=== PATIENT | male | born 1935 | race Caucasian/White ===

== ENCOUNTER 2020-05-31 09:30 | Inpatient (IN) | payer MEDICARE, SELFPAY ==
[2020-05-31] VITALS (11 sets, daily range): BP systolic 122–142; BP diastolic 66–106; PULSE 88–115; RESP 14–22; TEMP 36.4–37.2; O2SAT 94–99; BMI 28.3; BMI 25.2
--- NOTE | 2020-05-31 | ECG_ITS ---
Test Reason : SOB Blood Pressure : / mmHG Vent. Rate : 096 BPM Atrial Rate : 220 BPM P-R Int : 000 ms QRS Dur : 120 ms QT Int : 388 ms P-R-T Axes : 261 -68 075 degrees QTc Int : 490 ms Atrial flutter with variable A-V block Left axis deviation Pulmonary disease pattern Right bundle branch block Left ventricular hypertrophy with repolarization abnormality Cannot rule out Septal infarct (cited on or before 14-MAY-2019) Abnormal ECG When compared with ECG of 14-MAY-2019 01:09, Atrial flutter has replaced Sinus rhythm Right bundle branch block is now Present Referred By: Janay Diego Electronically Signed By:Dez Martin
--- NOTE | 2020-05-31 09:58 | XR_ITS ---
EXAMINATION: XR CHEST CLINICAL INFORMATION: Shortness of breath, fluid overload COMPARISON: Chest radiographs dated 05/13/2019 and chest CTA dated 05/14/2019. TECHNIQUE: Frontal view of the chest was obtained. FINDINGS: There is persistent opacification and superjacent markings in the right mid and lower lung field without significant change. The left lung is clear. The heart and mediastinal structures are unremarkable. Multilevel sternotomy wires are intact. XR/XR chest 1V IMPRESSION: Right pleural effusion and superjacent atelectasis/infiltrates without significant interval change.
--- NOTE | 2020-05-31 09:59 | ED.SOB ---
HPI - SOB/Dyspnea General Chief Complaint: Dyspnea Stated Complaint: SOB Time Seen by Provider: 05/31/20 09:41 Source: patient and EMS Mode of arrival: EMS Limitations: no limitations History of Present Illness HPI Narrative: 85 y/o male with history of CHF, s/p aortic valve replacement in 2004 with redo sternotomy wtih bioprostetic AVR and mechanical MVR in 2013 (on Coumadin), atypical HUS on [employer], hx recurrent right pleural effusion s/p Pleurex catheter placement several years ago (now removed), hx GI bleed in December 2019 who presents with worsening DOEx 1 week. He states he is now SOB when even taking a few steps. Breathing is worse when laying flat as well. No cough, chest pain, fever, chills, N/V. He reports not having his Lasix for 1 week because there was an issue with the mail-in pharmacy. When he got the prescription he took double the dose on Monday and Monday and usual dose today. MD elicited complaint: shortness of breath Pertinent past history: congestive heart failure Onset (ago): week(s) (1) Context: medication noncompliance Timing: constant Severity: moderate Exacerbating factors: lying flat and exertion Known history of: congestive heart failure Associated symptoms: orthopnea Treatment prior to arrival: oxygen Related Data Allergies Allergy/AdvReac Type Severity Reaction Status Date / Time Opioids - Morphine Analogues Allergy Unknown VOMITING Verified 05/31/20 09:57 [OPIOIDS - MORPHINE ANALOGUES] morphine [MORPHINE] AdvReac Unknown VOMITING Verified 05/31/20 09:57 Review of Systems Review of Systems: Constitutional: No Fever, No Chills ENT/Mouth: No sore throat, No Rhinorrhea, No Swallowing Difficulty Eyes: No Eye Pain, No Swelling, No Redness Cardiovascular: No Chest Pain, + SOB, + Orthopnea, + Edema Respiratory: No Cough, No Sputum, + Wheezing, + dyspnea Gastrointestinal: No Nausea, No Vomiting, No Diarrhea, No abdominal Pain Genitourinary: No Dysuria, No Urinary Frequency, No Hematuria Musculoskeletal: No joint pain, No Myalgias Skin: No Skin Lesions, No rash Neuro: No Weakness, No Numbness, + Dizziness, No Headache Psych: No Anxiety/Panic, No Depression Heme/Lymph: No Bruising, No Lymphadenopathy Endocrine: No Polyuria, No Polydipsia [facility] Past Medical History Medical History (Updated 05/31/20 @ 11:54 by ABENA Rodríguez) CHF (congestive heart failure) HTN (hypertension) Surgical History (Updated 05/31/20 @ 09:55 by Ronel Lainez) Status post double vessel coronary artery bypass Social History Social History Alcohol intake: never Smoking Status: Never smoker Use of substances other than those prescribed or required for medical reasons: No Advance Directives: No Advance Directives Information Provided: Yes Physical Exam Vital Signs: Vital Signs: Last Vital Signs Temp 97.6 F 05/31/20 09:48 Pulse 105 H 05/31/20 11:39 Resp 22 H 05/31/20 11:39 BP 122/66 05/31/20 11:39 Pulse Ox 98 05/31/20 11:39 Body Mass Index 28.3 Appearance: Alert. Oriented X3. No acute distress. Eyes: Pupils equal, round and reactive to light. ENT: Pharynx normal. Neck: Normal inspection. Neck supple. CVS: irregularly irregular, rapid rate, +murmur. Respiratory: mild respiratory distress with RR low 20's, bibasilar crackles R>L, speaks in 3-4 word sentences. Abdomen: Soft, rotund, and nontender. +BS x4 Skin: venous stasis changes to bilateral lower legs Extremities: 3+ pitting edema of bilateral ankles, 2+ edema of lower ankles. Neuro: Oriented X 3. No motor deficit. No sensory deficit. Course Course Course Narrative: 85 y/o male presenting with worsening SOB and ZEPEDA x1 week after not getting his lasix Rx in the mail. Exam consistent with fluid overload. Will get CXR and labs. Found to be in new onset atrial flutter, HR 90-100's. He is already anticoagulated. He denies chest pain. SOB when speaking, SpO2 93% on room air, placed on 2L NC for comfort, sat increased to 100%. Doubt sepsis, tachycardia and increased RR due to SOB/fluid overload. Dispo pending results and improvement. Reevaluation(s) Reevaluation #1: CXR showed Right pleural effusion and superjacent atelectasis/infiltrates without significant interval change. Hx requiring thoracentesis and Pleurex catheter in the past. Given his dyspnea will speak with hospitalist about admission. Reevaluation #2: Spoke with Dr. Jones who accepts patient. Type and screen ordered for possible FFP transfusion to perform thoracentesis. MDM - SOB/Dyspnea Lab Data Result diagrams: 05/31/20 10:16 05/31/20 10:16 Labs: Lab Results 05/31/20 05/31/20 05/31/20 Range/Units 10:16 10:16 10:16 WBC 7.1 (4.8-10.8) X10*3/uL RBC 3.29 L (4.60-5.80) X10*6/uL Hgb 10.6 L (14.0-18.0) g/dl Hct 34.1 L (42-52) % MCV 103.6 H (80-98) fL MCH 32.2 (27.0-33.0) pg MCHC 31.1 (31.0-36.0) g/dl RDW 15.6 (11.0-16.0) % Plt Count 171 (160-400) X10*3/uL MPV 10.9 (9.4-12.4) fL Immature Gran % (Auto) 0.3 (0.0-0.4) % Neut % (Auto) 75.4 H (45-73) % Lymph % (Auto) 9.9 L (20-40) % [place] % (Auto) 11.9 H (2-11) % Eos % (Auto) 2.2 (0-4) % Baso % (Auto) 0.3 (0-2) % Lymph # (Auto) 0.7 L (1.2-4.9) X10*3/uL [place] # (Auto) 0.9 (0.1-1.2) X10*3/uL Eos # (Auto) 0.2 (0.0-0.4) X10*3/uL Baso # (Auto) 0.0 (0.0-0.2) X10*3/uL Abs Immat Gran (auto) 0.02 (0.00-0.03) X10*3/uL Absolute Neuts (auto) 5.4 (2.0-8.3) X10*3/uL Absolute Nucleated RBC 0.000 (0.0-0.012) X10*3/uL Nucleated RBC % (auto) 0.0 (0.0-0.2) /100WBC PT 31.1 H (10.8-13.0) SEC INR 2.6 H (0.9-1.1) APTT 51.4 H (24.1-38.0) SEC Sodium 144 (135-145) mmol/L Potassium 3.6 (3.3-5.1) mmol/l Chloride 107 (96-108) mmol/L Carbon Dioxide 29 (22-29) mmol/L Anion Gap 12 (12-20) BUN 32 H (9-16) mg/dL Creatinine 1.30 (0.5-1.4) mg/dL Estim Creat Clear Calc 44.1 Estimated GFR 53 Random Glucose 145 H (60-115) mg/dL Calcium 8.6 (8.4-10.2) mg/dL Magnesium (1.6-2.6) mg/dL Total Bilirubin (0.0-1.0) mg/dL Direct Bilirubin (0.0-0.5) mg/dL AST (5-37) U/L ALT (0-40) U/L Alkaline Phosphatase (39-117) U/L Troponin I High Sens (<3.5-35.0) ng/L B-Natriuretic Peptide (<100) pg/mL Total Protein (6.5-8.0) g/dL Albumin (3.5-5.0) g/dL Urine Color Urine Appearance Urine pH (5.0-8.0) Ur Specific [place] (1.005-1.025) Urine Protein (NEG-TRACE) MG/DL Urine Glucose (UA) (NEG) MG/DL Urine Ketones (NEG) MG/DL Urine Blood (NEG) Urine Nitrite (NEG) Ur Leukocyte Esterase (NEG) Urine RBC (0) /HPF Urine WBC (0-4) /HPF Ur Squamous Epith Cells /LPF Urine Bacteria /LPF COVID-19 (ANNA) (Negative) COVID-19 Clin Com 05/31/20 05/31/20 05/31/20 Range/Units 10:16 10:16 10:16 WBC (4.8-10.8) X10*3/uL RBC (4.60-5.80) X10*6/uL Hgb (14.0-18.0) g/dl Hct (42-52) % MCV (80-98) fL MCH (27.0-33.0) pg MCHC (31.0-36.0) g/dl RDW (11.0-16.0) % Plt Count (160-400) X10*3/uL MPV (9.4-12.4) fL Immature Gran % (Auto) (0.0-0.4) % Neut % (Auto) (45-73) % Lymph % (Auto) (20-40) % [place] % (Auto) (2-11) % Eos % (Auto) (0-4) % Baso % (Auto) (0-2) % Lymph # (Auto) (1.2-4.9) X10*3/uL [place] # (Auto) (0.1-1.2) X10*3/uL Eos # (Auto) (0.0-0.4) X10*3/uL Baso # (Auto) (0.0-0.2) X10*3/uL Abs Immat Gran (auto) (0.00-0.03) X10*3/uL Absolute Neuts (auto) (2.0-8.3) X10*3/uL Absolute Nucleated RBC (0.0-0.012) X10*3/uL Nucleated RBC % (auto) (0.0-0.2) /100WBC PT (10.8-13.0) SEC INR (0.9-1.1) APTT (24.1-38.0) SEC Sodium (135-145) mmol/L Potassium (3.3-5.1) mmol/l Chloride (96-108) mmol/L Carbon Dioxide (22-29) mmol/L Anion Gap (12-20) BUN (9-16) mg/dL Creatinine (0.5-1.4) mg/dL Estim Creat Clear Calc Estimated GFR Random Glucose (60-115) mg/dL Calcium (8.4-10.2) mg/dL Magnesium 2.0 (1.6-2.6) mg/dL Total Bilirubin 1.0 (0.0-1.0) mg/dL Direct Bilirubin 0.5 (0.0-0.5) mg/dL AST 47 H (5-37) U/L ALT 26 (0-40) U/L Alkaline Phosphatase 72 (39-117) U/L Troponin I High Sens 17.6 (<3.5-35.0) ng/L B-Natriuretic Peptide (<100) pg/mL Total Protein 7.3 (6.5-8.0) g/dL Albumin 3.9 (3.5-5.0) g/dL Urine Color Urine Appearance Urine pH (5.0-8.0) Ur Specific [place] (1.005-1.025) Urine Protein (NEG-TRACE) MG/DL Urine Glucose (UA) (NEG) MG/DL Urine Ketones (NEG) MG/DL Urine Blood (NEG) Urine Nitrite (NEG) Ur Leukocyte Esterase (NEG) Urine RBC (0) /HPF Urine WBC (0-4) /HPF Ur Squamous Epith Cells /LPF Urine Bacteria /LPF COVID-19 (ANNA) Negative (Negative) COVID-19 Clin Com See Note 05/31/20 05/31/20 Range/Units 10:16 10:16 WBC (4.8-10.8) X10*3/uL RBC (4.60-5.80) X10*6/uL Hgb (14.0-18.0) g/dl Hct (42-52) % MCV (80-98) fL MCH (27.0-33.0) pg MCHC (31.0-36.0) g/dl RDW (11.0-16.0) % Plt Count (160-400) X10*3/uL MPV (9.4-12.4) fL Immature Gran % (Auto) (0.0-0.4) % Neut % (Auto) (45-73) % Lymph % (Auto) (20-40) % [place] % (Auto) (2-11) % Eos % (Auto) (0-4) % Baso % (Auto) (0-2) % Lymph # (Auto) (1.2-4.9) X10*3/uL [place] # (Auto) (0.1-1.2) X10*3/uL Eos # (Auto) (0.0-0.4) X10*3/uL Baso # (Auto) (0.0-0.2) X10*3/uL Abs Immat Gran (auto) (0.00-0.03) X10*3/uL Absolute Neuts (auto) (2.0-8.3) X10*3/uL Absolute Nucleated RBC (0.0-0.012) X10*3/uL Nucleated RBC % (auto) (0.0-0.2) /100WBC PT (10.8-13.0) SEC INR (0.9-1.1) APTT (24.1-38.0) SEC Sodium (135-145) mmol/L Potassium (3.3-5.1) mmol/l Chloride (96-108) mmol/L Carbon Dioxide (22-29) mmol/L Anion Gap (12-20) BUN (9-16) mg/dL Creatinine (0.5-1.4) mg/dL Estim Creat Clear Calc Estimated GFR Random Glucose (60-115) mg/dL Calcium (8.4-10.2) mg/dL Magnesium (1.6-2.6) mg/dL Total Bilirubin (0.0-1.0) mg/dL Direct Bilirubin (0.0-0.5) mg/dL AST (5-37) U/L ALT (0-40) U/L Alkaline Phosphatase (39-117) U/L Troponin I High Sens (<3.5-35.0) ng/L B-Natriuretic Peptide 228 H (<100) pg/mL Total Protein (6.5-8.0) g/dL Albumin (3.5-5.0) g/dL Urine Color YELLOW Urine Appearance CLEAR Urine pH 5.5 (5.0-8.0) Ur Specific [place] 1.015 (1.005-1.025) Urine Protein 1+ H (NEG-TRACE) MG/DL Urine Glucose (UA) NEG (NEG) MG/DL Urine Ketones NEG (NEG) MG/DL Urine Blood 1+ H (NEG) Urine Nitrite NEG (NEG) Ur Leukocyte Esterase NEG (NEG) Urine RBC 0-2 (0) /HPF Urine WBC 0 (0-4) /HPF Ur Squamous Epith Cells TRACE /LPF Urine Bacteria NONE /LPF COVID-19 (ANNA) (Negative) COVID-19 Clin Com ECG Data Attestation: I personally reviewed and interpreted this ECG as follows: ECG interpretation date: 05/31/20 ECG interpretation time: 10:01 Interpretation: atrial flutter with RBBB, HR 96, prolonged QTc 490 ms Discharge Plan Discharge Clinical Impression: Pleural effusion on right Congestive heart failure Qualifiers: Heart failure type: unspecified Heart failure chronicity: acute on chronic Qualified Code(s): I50.9 - Heart failure, unspecified Patient Disposition: Admitted As Inpatient
[2020-05-31 10:23] LABS: MANUAL DIFF FLAG NO
[2020-05-31 10:25] LABS: Basophils Percent Auto 0.3 % (0-2); Eosinophils Absolute Auto 0.2 X10*3/uL (0.0-0.4); Eosinophils Percent Auto 2.2 % (0-4); Hematocrit 34.1 % (42-52); Hemoglobin 10.6 g/dl (14.0-18.0); Imm Gran Abs Auto 0.02 X10*3/uL (0.00-0.03); Imm Gran Pct Auto 0.3 % (0.0-0.4); Lymphocytes Absolute Auto 0.7 X10*3/uL (1.2-4.9); Lymphocytes Percent Auto 9.9 % (20-40); Mean Corpuscular HGB Conc 31.1 g/dl (31.0-36.0); Mean Corpuscular Hemoglobin 32.2 pg (27.0-33.0); Mean Corpuscular Volume 103.6 fL (80-98); Mean Platelet Volume 10.9 fL (9.4-12.4); Monocytes Absolute Auto 0.9 X10*3/uL (0.1-1.2); Monocytes Percent Auto 11.9 % (2-11); Neutrophils Absolute Auto 5.4 X10*3/uL (2.0-8.3); Neutrophils Percent Auto 75.4 % (45-73); Platelet Count 171 X10*3/uL (160-400); Red Blood Count 3.29 X10*6/uL (4.60-5.80); Red Cell Distribution Width 15.6 % (11.0-16.0); White Blood Count 7.1 X10*3/uL (4.8-10.8)
[2020-05-31 10:27] LABS: Glucose Urine UA NEG (NEG); Leukocyte Esterase Urine NEG (NEG); Nitrite Urine NEG (NEG); PH 5.5 (5.0-8.0); Specific Gravity - Urine 1.015 (1.005-1.025); Urine Blood 1+ (NEG); Urine Ketones NEG (NEG); Urine Protein 1+ MG/DL (NEG-TRACE)
[2020-05-31 10:30] LABS: Appearance Urine CLEAR; Color Urine YELLOW
[2020-05-31 10:32] LABS: INTERNATIONAL NORM RATIO 2.6 (0.9-1.1); Prothrombin Time 31.1 SEC (10.8-13.0)
[2020-05-31 10:34] LABS: Partial Thromboplastin Time 51.4 SEC (24.1-38.0)
[2020-05-31 10:45] LABS: RBC Urine 0-2 /HPF (0); Squamous Epithelial Cell Urine TRACE /LPF; WBC Urine 0 /HPF (0-4)
[2020-05-31 10:47] LABS: COVID-19 Test Negative (Negative)
[2020-05-31 10:55] LABS: Anion Gap 12 (12-20); Blood Urea Nitrogen 32 mg/dL (9-16); Calcium 8.6 mg/dL (8.4-10.2); Carbon Dioxide 29 mmol/L (22-29); Chloride 107 mmol/L (96-108); Creatinine Clr Calc Pharmacy 44.1; Estimated Glomerular Filt Rate 53; Glucose Random 145 mg/dL (60-115); Potassium 3.6 mmol/l (3.3-5.1); Sodium 144 mmol/L (135-145)
[2020-05-31 10:57] LABS: Alanine Aminotransferase 26 U/L (0-40); Albumin Level 3.9 g/dL (3.5-5.0); Alkaline Phosphatase 72 U/L (39-117); Aspartate Amino Transferase 47 U/L (5-37); Bilirubin Direct 0.5 mg/dL (0.0-0.5); Total Protein 7.3 g/dL (6.5-8.0)
[2020-05-31 10:59] LABS: B Type Natriuretic Peptide 228 pg/mL (<100)
[2020-05-31 11:00] LABS: Troponin-I High Sensitivity 17.6 ng/L (<3.5-35.0)
[2020-05-31] MEDS: Furosemide 40 MG/4 ML VIAL IVPUSH (11:30)
[2020-05-31] MEDS: Potassium Chloride ER 20 MEQ TAB.ER.PRT 40 MEQ PO (11:31)
--- NOTE | 2020-05-31 13:02 | PC.NURSE ---
Joyce Daughter can be reached at this number
--- NOTE | 2020-05-31 13:26 | PM.IMHP ---
History of Present Illness Date of Service: 05/31/20 <Sara Kay NP - Last Filed: 05/31/20 16:39> Chief Complaint: Shortness of breath <Sara Kay NP - Last Filed: 05/31/20 16:39> 85 year old man presenting to the ED with worsening shortness of breath over the last several days. He reported that he ran out of his Lasix and apparently there was a delay in his mail order. He received it on Monday and took double dose on Monday and Monday and then took his regular dose today. He reported some increase in lower extremity edema more recently. He denied chest pain, nausea, vomiting. He has a history of recurrent pleural effusion. CXR showing effusion again. BNP was mildly elevated at 228. His creatinine was also mildly bumped at 1.30. He will be admitted for CHF and recurrent pleural effusion which mariann likely require thoracentesis <Sara Kay NP - Last Filed: 05/31/20 16:39> Review of Systems Review of Systems: Denies any recent fever chills or decrease in appetite respiratory See above cardiovascular See above gastrointestinal denies any dysphagia abdominal pain nausea vomiting or diarrhea genitourinary denies any dysuria frequency or hematuria musculoskeletal denies any joint pain or swelling neuropsych denies any weakness or seizures all other systems reviewed are negative <Sara Kay NP - Last Filed: 05/31/20 16:39> [facility] Medical History: Medical History (Updated 06/01/20 @ 10:28 by Gabino Ba MD) Atrial flutter Carpal tunnel syndrome CHF (congestive heart failure) GERD (gastroesophageal reflux disease) GI bleed HTN (hypertension) HUS (hemolytic uremic syndrome) Hyperlipidemia Hypothyroidism Stasis dermatitis Thoracoscopic surgical procedure converted to open procedure <Sara Kay NP - Last Filed: 05/31/20 16:39> Surgical History: Surgical History (Updated 06/01/20 @ 10:28 by Gabino Ba MD) H/O mitral valve replacement with mechanical valve History of aortic valve replacement with bioprosthetic valve History of bronchoscopy Status post double vessel coronary artery bypass <Sara Kay NP - Last Filed: 05/31/20 16:39> Social History: Social History (Updated 05/31/20 @ 13:42 by Sara Kay NP) Household Members: Spouse and Family Housing: House Alcohol intake: never Smoking Status: Never smoker Advance Directives Date on File: 05/31/20 service: No <Sara Kay NP - Last Filed: 05/31/20 16:39> Meds Allergies/Adverse reactions: Allergies Allergy/AdvReac Type Severity Reaction Status Date / Time Opioids - Morphine Analogues Allergy Unknown VOMITING Verified 05/31/20 09:57 [OPIOIDS - MORPHINE ANALOGUES] morphine [MORPHINE] AdvReac Unknown VOMITING Verified 05/31/20 09:57 <Sara Kay NP - Last Filed: 05/31/20 16:39> Home medications: Home Medications Medication Instructions Recorded Confirmed Type aspirin 81 mg PO DAILY 05/31/20 05/31/20 History atorvastatin [Lipitor] 10 mg PO BEDTIME 05/31/20 05/31/20 History levothyroxine 100 mcg PO DAILY 05/31/20 05/31/20 History warfarin 7.5 mg PO DAILY 05/31/20 05/31/20 History <Sara Kay NP - Last Filed: 05/31/20 16:39> Physical Exam Vital Signs and Narrative: Vital Signs: Last Vital Signs Temp 97.6 F 05/31/20 09:48 Pulse 113 H 05/31/20 13:10 Resp 20 05/31/20 13:10 BP 125/73 05/31/20 13:10 Pulse Ox 94 05/31/20 13:10 Body Mass Index 28.3 <Sara Kay NP - Last Filed: 05/31/20 16:39> Appearing in no acute distress head is normocephalic atraumatic eyes pupils are PERRLA sclera is anicteric mouth throat mucous membranes are intact and moist neck is supple no lymphadenopathy, no JVD noted lung sounds are clear to auscultation heart regular rate rhythm, clear S1, S2 positive bowel sounds, abdomen is soft, nontender neuro patient is alert x3, no focal deficits <Sara Kay NP - Last Filed: 05/31/20 16:39> Results Labs CBC and Chem 7: : 05/31/20 10:16 06/02/20 05:39 <Sara Kay NP - Last Filed: 05/31/20 16:39> Labs: Laboratory Results - last 24 hr 05/31/20 05/31/20 05/31/20 10:16 10:16 10:16 MCV 103.6 H MCH 32.2 MCHC 31.1 RDW 15.6 Plt Count 171 MPV 10.9 Immature Gran % (Auto) 0.3 Neut % (Auto) 75.4 H Lymph % (Auto) 9.9 L [place] % (Auto) 11.9 H Eos % (Auto) 2.2 Baso % (Auto) 0.3 Lymph # (Auto) 0.7 L [place] # (Auto) 0.9 Eos # (Auto) 0.2 Baso # (Auto) 0.0 Abs Immat Gran (auto) 0.02 Absolute Neuts (auto) 5.4 Absolute Nucleated RBC 0.000 Nucleated RBC % (auto) 0.0 PT 31.1 H INR 2.6 H APTT 51.4 H Anion Gap 12 Estim Creat Clear Calc 44.1 Estimated GFR 53 Random Glucose 145 H Calcium 8.6 Magnesium Total Bilirubin Direct Bilirubin AST ALT Alkaline Phosphatase Troponin I High Sens B-Natriuretic Peptide Total Protein Albumin Urine Color Urine Appearance Urine pH Ur Specific [place] Urine Protein Urine Glucose (UA) Urine Ketones Urine Blood Urine Nitrite Ur Leukocyte Esterase Urine RBC Urine WBC Ur Squamous Epith Cells Urine Bacteria COVID-19 (ANNA) COVID-19 Clin Com Blood Type Antibody Screen 05/31/20 05/31/20 05/31/20 10:16 10:16 10:16 MCV MCH MCHC RDW Plt Count MPV Immature Gran % (Auto) Neut % (Auto) Lymph % (Auto) [place] % (Auto) Eos % (Auto) Baso % (Auto) Lymph # (Auto) [place] # (Auto) Eos # (Auto) Baso # (Auto) Abs Immat Gran (auto) Absolute Neuts (auto) Absolute Nucleated RBC Nucleated RBC % (auto) PT INR APTT Anion Gap Estim Creat Clear Calc Estimated GFR Random Glucose Calcium Magnesium 2.0 Total Bilirubin 1.0 Direct Bilirubin 0.5 AST 47 H ALT 26 Alkaline Phosphatase 72 Troponin I High Sens 17.6 B-Natriuretic Peptide Total Protein 7.3 Albumin 3.9 Urine Color Urine Appearance Urine pH Ur Specific [place] Urine Protein Urine Glucose (UA) Urine Ketones Urine Blood Urine Nitrite Ur Leukocyte Esterase Urine RBC Urine WBC Ur Squamous Epith Cells Urine Bacteria COVID-19 (ANNA) Negative COVID-19 Clin Com See Note Blood Type Antibody Screen 05/31/20 05/31/20 05/31/20 10:16 10:16 12:26 MCV MCH MCHC RDW Plt Count MPV Immature Gran % (Auto) Neut % (Auto) Lymph % (Auto) [place] % (Auto) Eos % (Auto) Baso % (Auto) Lymph # (Auto) [place] # (Auto) Eos # (Auto) Baso # (Auto) Abs Immat Gran (auto) Absolute Neuts (auto) Absolute Nucleated RBC Nucleated RBC % (auto) PT INR APTT Anion Gap Estim Creat Clear Calc Estimated GFR Random Glucose Calcium Magnesium Total Bilirubin Direct Bilirubin AST ALT Alkaline Phosphatase Troponin I High Sens B-Natriuretic Peptide 228 H Total Protein Albumin Urine Color YELLOW Urine Appearance CLEAR Urine pH 5.5 Ur Specific [place] 1.015 Urine Protein 1+ H Urine Glucose (UA) NEG Urine Ketones NEG Urine Blood 1+ H Urine Nitrite NEG Ur Leukocyte Esterase NEG Urine RBC 0-2 Urine WBC 0 Ur Squamous Epith Cells TRACE Urine Bacteria NONE COVID-19 (ANNA) COVID-19 Clin Com Blood Type A Positive Antibody Screen NEGATIVE <Sara Kay NP - Last Filed: 05/31/20 16:39> Imaging Radiologist's Impressions: Impressions Chest X-Ray 05/31/20 09:58 IMPRESSION: Right pleural effusion and superjacent atelectasis/infiltrates without significant interval change. <Sara Kay NP - Last Filed: 05/31/20 16:39> Assessment and Plan (1) Congestive heart failure: Qualifiers: Heart failure chronicity: acute on chronic Heart failure type: unspecified Qualified Code(s): I50.9 - Heart failure, unspecified <Sara Kay NP - Last Filed: 05/31/20 16:39> Status: Acute <Sara Kay NP - Last Filed: 05/31/20 16:39> (2) Pleural effusion on right: Status: Acute <Sara Kay NP - Last Filed: 05/31/20 16:39> 85 year old man admitted with CHF and recurrent ride sided pleural effusion. CHF. Missed one week of Lasix, start IV lasix. Follow I&O, daily weights. Right sided pleural effusion. Thoracentesis tommorrow, Hx of mechanical mitral valve, hold Warfarin tonight. Hypothyroidism. Levothyroxine. DVT prophylaxis with warfarin after thoracentesis. Discussed with Dr. Keyes Full code. <Sara Kay NP - Last Filed: 05/31/20 16:39>
[2020-05-31] MEDS: 0.9 % Sodium Chloride Flush 3 ML SYRINGE IVFLUSH (16:18)
[2020-05-31] MEDS: Furosemide 20 MG/2 ML VIAL IVPUSH (18:24)
[2020-05-31] MEDS: Atorvastatin Calcium 10 MG TABLET PO (20:18)
[2020-05-31] MEDS: Metoprolol Tartrate 25 MG TABLET 12.5 MG PO (20:18)
[2020-06-01] VITALS (9 sets, daily range): BP systolic 109–150; BP diastolic 59–81; PULSE 64–113; RESP 18–20; TEMP 36.7–36.9; O2SAT 94–98; BMI 25.2
--- NOTE | 2020-06-01 | CT_ITS ---
EXAMINATION: CT CHEST WITHOUT CONTRAST CLINICAL INFORMATION: Patient for right thoracentesis. COMPARISON: Chest x-rays of May 31, 2020 and May 13, [address] a of the chest of May 13, 2019. TECHNIQUE: Multidetector volumetric CT imaging of the chest was done. Axial MIP volume rendering provided. Sagittal and coronal reformatted images were obtained. This CT examination was performed using dose optimization techniques as appropriate, variously including the following: *Automated exposure control *Adjustment of mA and/or kV according to patient size (this includes techniques or standardized protocols for targeted exams where dose is matched to indication/reason for exam; i.e. extremities or head) *Use of iterative reconstruction technique DLP: 117 mGy-cm FINDINGS: Preliminary scanning of the chest again demonstrate pleural parenchymal scarring with minimal loculated right pleural effusion which is likely of the gelatin type consistency due to fibrin nonclotting and not liquid. Right thoracentesis was canceled. LUNGS: There is chronic right pleural parenchymal disease similar to previous examination of May 13, 2019 with some pleural calcifications being present as well as minimal loculated pleural effusion. There is loss of right lung volume. Central airways are patent. There is right-sided bronchial wall thickening seen without significant bronchiectasis. There are a few broncholiths seen within the lingula. MEDIASTINUM: The heart is enlarged. No pericardial effusion. There are prominent coronary artery calcifications present. There is calcification of the aortic valve and mitral annulus with what appear to be prosthetic aortic and mitral valves. The ascending thoracic aorta measures up to 4.1 cm in diameter. There appears be nonocclusive calcified plaque within the aortic arch. No lymphadenopathy is appreciated. Status post median sternotomy. AXILLA: No lymphadenopathy. UPPER ABDOMEN: Cholelithiasis is present. There appears be a 3 mm calcification upper pole of the right kidney. OSSEOUS STRUCTURES: No destructive bony lesions identified. Multilevel degenerative disc disease is present. CT/CT chest wo con IMPRESSION: Chronic right pleural parenchymal disease as described with no enlarging acute pleural effusion identified. Thoracentesis not performed. Cardiomegaly status post mitral and aortic valve placement.
[2020-06-01] MEDS: 0.9 % Sodium Chloride Flush 3 ML SYRINGE IVFLUSH ×4 (00:51→22:16)
[2020-06-01 05:16] LABS: INTERNATIONAL NORM RATIO 2.5 (0.9-1.1); Prothrombin Time 30.2 SEC (10.8-13.0)
[2020-06-01 05:32] LABS: Anion Gap 12 (12-20); Blood Urea Nitrogen 42 mg/dL (9-16); Calcium 8.2 mg/dL (8.4-10.2); Carbon Dioxide 29 mmol/L (22-29); Chloride 104 mmol/L (96-108); Creatinine Clr Calc Pharmacy 46.3; Estimated Glomerular Filt Rate > 60; Glucose Random 104 mg/dL (60-115); Potassium 4.3 mmol/l (3.3-5.1); Sodium 141 mmol/L (135-145)
[2020-06-01] MEDS: Aspirin 81 MG TAB.CHEW PO (08:05)
[2020-06-01] MEDS: Metoprolol Tartrate 25 MG TABLET 12.5 MG PO (08:05)
[2020-06-01] MEDS: Furosemide 20 MG/2 ML VIAL IVPUSH ×2 (08:05→10:46)
[2020-06-01] MEDS: Levothyroxine Sodium 100 MCG TABLET PO (08:05)
[2020-06-01 08:55] LABS: Lactate Dehydrogenase 550 U/L (118-273)
--- NOTE | 2020-06-01 09:41 | MHC.CM.PN ---
MET WITH PT WHO IS INDEPEDENT AND ISIAH MOSQUEDA TO DRIVE PT DOES BNOT ANTICAPATE NEEDING SERVCEIS WHEN DCD
--- NOTE | 2020-06-01 09:57 | ECG_ITS ---
Test Reason : FLUTTER Blood Pressure : / mmHG Vent. Rate : 100 BPM Atrial Rate : 110 BPM P-R Int : 000 ms QRS Dur : 114 ms QT Int : 392 ms P-R-T Axes : 000 -71 063 degrees QTc Int : 505 ms Rhythm shows atrial flutter with variable block Left axis deviation Right bundle branch block Moderate voltage criteria for LVH, may be normal variant Cannot rule out Septal infarct (cited on or before 14-MAY-2019) Prolonged QT Abnormal ECG When compared with ECG of 31-MAY-2020 09:49, No significant changes seen Referred By: Gabino Ba Electronically Signed By:GABINO BA MD
--- NOTE | 2020-06-01 10:11 | P.CONCA_ITS ---
History of Present Illness History of Present Illness Date of Service: 06/01/20 Requesting physician: Stefanie Daley Chief complaint: chf Narrative: Thank you for inviting us in consult on Dario for congestive heart failure. He is a pleasant but a difficult historian 85-year-old male with prior valve replacement. He said for surgeries done many years ago in [place] very had bioprosthetic aortic valve replacement. He does not know the exact reason for it. Subsequently in 2013 he had to have redo surgery at which time he underwent a mechanical mitral valve replacement along with a bioprosthetic aortic valve replacement. He does not recall having coronary artery disease. He also does not recall having any cardiac arrhythmias. He does have history of heart failure cord and cord, unclear reason and ran out of Lasix due to delay in his long-term furosemide coming from his long-term pharmacy. He was out of his medications got refill few days ago but continued to have shortness of breath with minimal exertion. Also had leg edema. Therefore he came to the emergency room. Initial BNP was slightly elevated in the mid 200 range. He has received IV Lasix negative balance of 1200 cc. He says he feels really well today and much improved shortness of breath. He still has some leg edema. Noted to be tachycardic, EKG consistent with atrial flutter/atrial tachycardia with variable conduction. Review of Systems Constitutional: Constitutional: Denies body ache(s), Denies chills, Denies fever(s) and Denies frequent falls Eyes: Eyes: Reports no additional eye complaints ENT: Reports system reviewed and no additional complaints, except as documented Cardiovascular: Cardiovascular: Denies chest pain with activity, Denies rapid heart rate, Reports leg edema, Denies palpitations and Reports dyspnea on exertion Respiratory: Respiratory: Denies change in phlegm color, Denies cough and Reports dyspnea on exertion Gastrointestinal: Gastrointestinal: Reports no additional gastrointestinal complaints Genitourinary: Genitourinary: Reports no additional male genitourinary complaints Musculoskeletal: Musculoskeletal: Reports no additional musculoskeletal complaints Neurologic: Reports system reviewed and no additional complaints, except as documented and Denies frequent falls Psychiatric: Psychiatric: Reports no additional psychiatric complaints Endocrine: Endocrine: Reports no additional endocrine complaints and Denies palpitations Hematologic/Lymphatic: Hematologic/Lymphatic: Reports no additional hematologic/lymphatic complaints [facility] Past Medical History Medical History (Updated 06/01/20 @ 10:28 by Gabino Ba MD) Atrial flutter Carpal tunnel syndrome CHF (congestive heart failure) GERD (gastroesophageal reflux disease) GI bleed HTN (hypertension) HUS (hemolytic uremic syndrome) Hyperlipidemia Hypothyroidism Stasis dermatitis Thoracoscopic surgical procedure converted to open procedure Surgical History Surgical History (Updated 06/01/20 @ 10:28 by Gabino Ba MD) 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 If so, by whom?: No Do you feel safe in your current relationship?: Yes Is there a partner from a previous relationship who is making you feel unsafe now?: No Are you made to feel afraid or neglected: No Advance Directives: Yes Advance Directives Information Provided: No Advance Directives on File: No Advance Directives Date on File: 05/31/20 Do you have thoughts of harming others: None Do you have a plan to hurt others: No Plan Recently lost weight without trying: No service: No Meds Allergies Allergy/AdvReac Type Severity Reaction Status Date / Time Opioids - Morphine Analogues Allergy Unknown VOMITING Verified 05/31/20 09:57 [OPIOIDS - MORPHINE ANALOGUES] morphine [MORPHINE] AdvReac Unknown VOMITING Verified 05/31/20 09:57 Home Medications Medication Instructions Recorded Confirmed Type aspirin [Aspirin Low-Strength] 81 mg PO DAILY 05/31/20 05/31/20 History atorvastatin [Lipitor] 10 mg PO BEDTIME 05/31/20 05/31/20 History furosemide 40 mg PO DAILY 05/31/20 05/31/20 History levothyroxine 100 mcg PO DAILY 05/31/20 05/31/20 History metoprolol tartrate 12.5 mg PO BID 05/31/20 05/31/20 History warfarin 7.5 mg PO DAILY 05/31/20 05/31/20 History Physical Exam Vital Signs: Vital Signs: Last Vital Signs Temp 98.1 F 06/01/20 08:00 Pulse 113 H 06/01/20 08:00 Resp 18 06/01/20 08:00 BP 133/73 06/01/20 08:00 Pulse Ox 95 06/01/20 08:00 Body Mass Index 25.2 Const: General: cooperative, alert, awake and acute distress mild and respiratory Nutritional Appearance: overweight Orientation/consciousness: patient oriented x3 Limitations: no limitations HENMT: Head: Yes normocephalic and Yes atraumatic Eyes: General: appearance normal, both eyes and all related structures Neck: Neck: Yes trachea midline, Yes supple and Yes JVD Chest: Chest palpation & inspection: normal inspection of the chest and other (Well-healed sternotomy scar) Resp: Effort & Inspection: normal respiratory effort Auscultation: breath sounds absent on the right (base) Cardio: Jugular venous distension: JVD Rate: tachycardic Heart sounds: Other heart sounds present (Hardy opening and closing click of mitral valve. No clear significant murm) GI: Auscultation: normal bowel sounds Skin: General skin exam: no rashes or lesions noted and ecchymosis Neuro: General: patient oriented x3 and no focal motor deficits Extrem: General: No clubbing, No cyanosis, Yes edema and Yes venous stasis dermatitis Psych: Appearance: grossly normal Results Labs and Meds Result diagrams: 05/31/20 10:16 06/01/20 04:19 Lab results: Laboratory Results - last 24 hr 05/31/20 05/31/20 05/31/20 10:16 10:16 10:16 WBC 7.1 RBC 3.29 L Hgb 10.6 L Hct 34.1 L MCV 103.6 H MCH 32.2 MCHC 31.1 RDW 15.6 Plt Count 171 MPV 10.9 Immature Gran % (Auto) 0.3 Neut % (Auto) 75.4 H Lymph % (Auto) 9.9 L [place] % (Auto) 11.9 H Eos % (Auto) 2.2 Baso % (Auto) 0.3 Lymph # (Auto) 0.7 L [place] # (Auto) 0.9 Eos # (Auto) 0.2 Baso # (Auto) 0.0 Abs Immat Gran (auto) 0.02 Absolute Neuts (auto) 5.4 Absolute Nucleated RBC 0.000 Nucleated RBC % (auto) 0.0 PT 31.1 H INR 2.6 H APTT 51.4 H Sodium 144 Potassium 3.6 Chloride 107 Carbon Dioxide 29 Anion Gap 12 BUN 32 H Creatinine 1.30 Estim Creat Clear Calc 44.1 Estimated GFR 53 Random Glucose 145 H Calcium 8.6 Magnesium Total Bilirubin Direct Bilirubin AST ALT Alkaline Phosphatase Lactate Dehydrogenase Troponin I High Sens B-Natriuretic Peptide Total Protein Albumin Urine Color Urine Appearance Urine pH Ur Specific [place] Urine Protein Urine Glucose (UA) Urine Ketones Urine Blood Urine Nitrite Ur Leukocyte Esterase Urine RBC Urine WBC Ur Squamous Epith Cells Urine Bacteria COVID-19 (ANNA) COVID-19 Clin Com Blood Type Antibody Screen 05/31/20 05/31/20 05/31/20 10:16 10:16 10:16 WBC RBC Hgb Hct MCV MCH MCHC RDW Plt Count MPV Immature Gran % (Auto) Neut % (Auto) Lymph % (Auto) [place] % (Auto) Eos % (Auto) Baso % (Auto) Lymph # (Auto) [place] # (Auto) Eos # (Auto) Baso # (Auto) Abs Immat Gran (auto) Absolute Neuts (auto) Absolute Nucleated RBC Nucleated RBC % (auto) PT INR APTT Sodium Potassium Chloride Carbon Dioxide Anion Gap BUN Creatinine Estim Creat Clear Calc Estimated GFR Random Glucose Calcium Magnesium 2.0 Total Bilirubin 1.0 Direct Bilirubin 0.5 AST 47 H ALT 26 Alkaline Phosphatase 72 Lactate Dehydrogenase Troponin I High Sens 17.6 B-Natriuretic Peptide Total Protein 7.3 Albumin 3.9 Urine Color Urine Appearance Urine pH Ur Specific [place] Urine Protein Urine Glucose (UA) Urine Ketones Urine Blood Urine Nitrite Ur Leukocyte Esterase Urine RBC Urine WBC Ur Squamous Epith Cells Urine Bacteria COVID-19 (ANNA) Negative COVID-19 Clin Com See Note Blood Type Antibody Screen 05/31/20 05/31/20 05/31/20 10:16 10:16 12:26 WBC RBC Hgb Hct MCV MCH MCHC RDW Plt Count MPV Immature Gran % (Auto) Neut % (Auto) Lymph % (Auto) [place] % (Auto) Eos % (Auto) Baso % (Auto) Lymph # (Auto) [place] # (Auto) Eos # (Auto) Baso # (Auto) Abs Immat Gran (auto) Absolute Neuts (auto) Absolute Nucleated RBC Nucleated RBC % (auto) PT INR APTT Sodium Potassium Chloride Carbon Dioxide Anion Gap BUN Creatinine Estim Creat Clear Calc Estimated GFR Random Glucose Calcium Magnesium Total Bilirubin Direct Bilirubin AST ALT Alkaline Phosphatase Lactate Dehydrogenase Troponin I High Sens B-Natriuretic Peptide 228 H Total Protein Albumin Urine Color YELLOW Urine Appearance CLEAR Urine pH 5.5 Ur Specific [place] 1.015 Urine Protein 1+ H Urine Glucose (UA) NEG Urine Ketones NEG Urine Blood 1+ H Urine Nitrite NEG Ur Leukocyte Esterase NEG Urine RBC 0-2 Urine WBC 0 Ur Squamous Epith Cells TRACE Urine Bacteria NONE COVID-19 (ANNA) COVID-19 Clin Com Blood Type A Positive Antibody Screen NEGATIVE 06/01/20 06/01/20 04:19 04:19 WBC RBC Hgb Hct MCV MCH MCHC RDW Plt Count MPV Immature Gran % (Auto) Neut % (Auto) Lymph % (Auto) [place] % (Auto) Eos % (Auto) Baso % (Auto) Lymph # (Auto) [place] # (Auto) Eos # (Auto) Baso # (Auto) Abs Immat Gran (auto) Absolute Neuts (auto) Absolute Nucleated RBC Nucleated RBC % (auto) PT 30.2 H INR 2.5 H APTT Sodium 141 Potassium 4.3 Chloride 104 Carbon Dioxide 29 Anion Gap 12 BUN 42 H Creatinine 1.13 Estim Creat Clear Calc 46.3 Estimated GFR > 60 Random Glucose 104 Calcium 8.2 L Magnesium Total Bilirubin Direct Bilirubin AST ALT Alkaline Phosphatase Lactate Dehydrogenase 550 H Troponin I High Sens B-Natriuretic Peptide Total Protein Albumin Urine Color Urine Appearance Urine pH Ur Specific [place] Urine Protein Urine Glucose (UA) Urine Ketones Urine Blood Urine Nitrite Ur Leukocyte Esterase Urine RBC Urine WBC Ur Squamous Epith Cells Urine Bacteria COVID-19 (ANNA) COVID-19 Clin Com Blood Type Antibody Screen EKG shows atrial flutter/atrial tachycardia with variable conduction with 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 Patient is doing better with good diuresis IV Lasix we continue IV Lasix 20 mg b.i.d. for 1 more day. Strict intake and output chart needs to be pursued. Follow-up BMP and BNP tomorrow. Continue better rate control, see below. Possible that new onset atrial flutter could be the cause of his decompensation rather than under diuresis. See below for further management plan. (2) Atrial flutter: Status: Acute New onset atrial flutter with loss of AV synchrony and tachycardia. Possible that his congestive heart failure could be related to new onset atrial flutter with both tachycardias loss of AV synchrony. Will pursue rate control approach at this time. Increase metoprolol to 12.5 mg q.6 and maximize to improve rate control below 100 beats per minute. He is already on Coumadin therapy. Maintain target INR between 2.5 and 3.5. If remains symptomatic as outpatient may require rhythm control approach. Will follow up with his dish machine operator Dr. Meneses as outpatient. (3) H/O mitral valve replacement with mechanical valve: Status: Inactive Prior history of mechanical mitral valve replacement and bioprosthetic aortic valve replacement, clinically seem to be working well. Currently on full oral anticoagulation. Maintain target INR between 2.5 and 3.5. Echocardiogram done recently as outpatient showed normal LV systolic function moderate LVH and normal function bioprosthetic aortic valve, gradient across mitral valve was 6 mm Hg which is okay for mechanical valve. 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 SBE prophylaxis as per ACC/aha guidelines. Will continue to follow the patient. Thank you for allowing us to partake in his care
[2020-06-01] MEDS: Metoprolol Tartrate 25 MG TABLET PO ×3 (10:46→22:16)
--- NOTE | 2020-06-01 12:05 | P.CDIC_ITS ---
CDI Concurrent Query Service Date: 06/01/20 Documentation Clarification: Please clarify if you are treating a proba ble/suspected/likely or confirmed: Acute on chronic diastolic and/or systolic Congestive heart failure-yes. Chronic diastolic and/or systolic Congestive heart failure Please specify if known Provider Response: Other Other Diagnosis: Acute on chronic CHF-systolic versus diastolic etiology unclear. Echo pending PLEASE DO NOT DELETE/MODIFY EXISTING CONTENT Additional information is needed in order to code to the highest accuracy and appropriate Severity of Illness (SOI). Please clarify the information noted below in your progress notes and discharge summary. Risk Factors/Clinical Indicators/Treatments CHF - Pleural effusion on right Fluid overload BNP 228 H Missed one week lasix at home IV Lasix CDS: Gemini Ashley CCS, CDIS Contact Number: [phone] Please Review the information above and exercise your independent professional judgment in responding to the query. If you concur, pleas document in the PROGRESS NOTES and DISCHARGE SUMMARY. If you do not agree with the query, please document in the query above. THIS QUERY IS PART OF THE PERMANENT MEDICAL RECORD
[2020-06-01] MEDS: Furosemide 20 MG/2 ML VIAL 40 MG IVPUSH (17:40)
--- NOTE | 2020-06-01 19:15 | HO.PM.IMPN ---
Subjective Subjective Date of Service: 06/04/20 Interval History: Acute on chronic CHF-systolic versus diastolic added etiology unclear echo pending. Review of Systems Patient shortness of breath is slowly improving, says his pleural fluid is probably chronic. Physical Exam Vital Signs: Vital Signs: Last Vital Signs Temp 98.2 F 06/01/20 15:59 Pulse 112 H 06/01/20 17:40 Resp 20 06/01/20 15:59 BP 150/81 H 06/01/20 17:40 Pulse Ox 95 06/01/20 15:59 Body Mass Index 25.2 Physical exam: Cvs: rrr, [id number] , no murmur res: fair air entry , slightly diminshed right>left abd: no rebound or guarding ,nt, bs present. ext pulses present , no cyanosis neuro: axo3 , nonfocal. Objective Data Current Medications Generic Name Dose Route Start Last Admin Trade Name Freq PRN Reason Stop Dose Admin Acetaminophen 650 mg 05/31/20 15:54 Acetaminophen 325 Mg Tablet PO Q6H PRN Pain, Mild (Pain Scale 1-3) Aspirin 81 mg 06/01/20 09:00 06/01/20 08:05 Aspirin 81 Mg Tab.Chew PO 81 mg DAILY MYKEL Administration Atorvastatin Calcium 10 mg 05/31/20 21:00 05/31/20 20:18 Atorvastatin Calcium 10 Mg Tablet PO 10 mg BEDTIME MYKEL Administration Furosemide 40 mg 06/01/20 18:00 06/01/20 17:40 Furosemide 20 Mg/2 Ml Vial IVPUSH 40 mg BID@0900,1800 MYKEL Administration Protocol Levothyroxine Sodium 100 mcg 06/01/20 09:00 06/01/20 08:05 Levothyroxine Sodium 100 Mcg Tablet PO 100 mcg DAILY MYKEL Administration Metoprolol Tartrate 25 mg 06/01/20 11:00 06/01/20 17:40 Metoprolol Tartrate 25 Mg Tablet PO 25 mg Q6H MYKEL Administration Protocol Ondansetron HCl 4 mg 05/31/20 15:54 Ondansetron Hcl 4 Mg/2 Ml Vial IVPUSH Q8H PRN Nausea and Vomiting Sodium Chloride 3 ml 05/31/20 16:00 06/01/20 15:16 0.9 % Sodium Chloride Flush 3 Ml Syringe IVFLUSH 3 ml QSHIFT MYKEL Administration Labs CBC & Chem 7: 05/31/20 10:16 06/02/20 05:39 Assessment and Plan (1) Atrial flutter: Status: Acute (2) Pleural effusion on right: Status: Acute (3) Congestive heart failure: Status: Acute Assessment and Plan: CHF. Missed one week of Lasix, start IV lasix. Follow I&O, daily weights. Congestive heart failure due to lack of medicine as outpatient. Patient is doing better with good diuresis IV Lasix we continue IV Lasix 20 mg b.i.d. for 1 more day. Strict intake and output chart needs to be pursued. Follow-up BMP and BNP tomorrow. Possible that new onset atrial flutter could be the cause of his decompensation rather than under diuresis. See below for further management plan. (2) Atrial flutter: New onset atrial flutter with loss of AV synchrony and tachycardia. Possible that his congestive heart failure could be related to new onset atrial flutter with both tachycardias loss of AV synchrony. Will pursue rate control approach at this time. Increase metoprolol 25 mg q.6 and maximize to improve rate control below 100 beats per minute. He is already on Coumadin therapy. 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 Currently on full oral anticoagulation. Maintain target INR between 2.5 and 3.5. Echocardiogram done recently as outpatient showed normal LV systolic function moderate LVH and normal function bioprosthetic aortic valve, gradient across mitral valve was 6 mm Hg which is okay for mechanical valve. However is not reported as a mechanical valve. SBE prophylaxis as per ACC/aha guidelines. Right sided pleural effusion. Thoracentesis tommorrow, Hx of mechanical mitral valve, hold Warfarin tonight. Hypothyroidism. Levothyroxine. DVT prophylaxis with warfarin after thoracentesis.
[2020-06-01] MEDS: Atorvastatin Calcium 10 MG TABLET PO (22:16)
[2020-06-02 03:34] VITALS: BP 110/54; PULSE 72; RESP 20; TEMP 36.7; O2SAT 96
[2020-06-02 05:27] VITALS: BP 117/63; PULSE 75
[2020-06-02] MEDS: Metoprolol Tartrate 25 MG TABLET PO ×2 (05:27→11:48)
[2020-06-02 05:29] VITALS: BMI 26.3
[2020-06-02 06:58] LABS: Anion Gap 12 (12-20); Blood Urea Nitrogen 43 mg/dL (9-16); Calcium 8.3 mg/dL (8.4-10.2); Carbon Dioxide 31 mmol/L (22-29); Chloride 103 mmol/L (96-108); Creatinine Clr Calc Pharmacy 39.6; Estimated Glomerular Filt Rate 52; Glucose Random 101 mg/dL (60-115); Potassium 4.1 mmol/l (3.3-5.1); Sodium 142 mmol/L (135-145)
[2020-06-02 07:32] VITALS: BP 114/61; PULSE 73; RESP 18; TEMP 37.1; O2SAT 97
--- NOTE | 2020-06-02 08:17 | HO.PM.IMPN ---
Subjective Subjective Date of Service: 06/02/20 Interval History: pleural effusion , chf Physical Exam Vital Signs: Vital Signs: Last Vital Signs Temp 98.7 F 06/02/20 07:32 Pulse 73 06/02/20 07:32 Resp 18 06/02/20 07:32 BP 114/61 06/02/20 07:32 Pulse Ox 97 06/02/20 07:32 Body Mass Index 26.3 Objective Data Current Medications Generic Name Dose Route Start Last Admin Trade Name Freq PRN Reason Stop Dose Admin Acetaminophen 650 mg 05/31/20 15:54 Acetaminophen 325 Mg Tablet PO Q6H PRN Pain, Mild (Pain Scale 1-3) Aspirin 81 mg 06/01/20 09:00 06/01/20 08:05 Aspirin 81 Mg Tab.Chew PO 81 mg DAILY MYKEL Administration Atorvastatin Calcium 10 mg 05/31/20 21:00 06/01/20 22:16 Atorvastatin Calcium 10 Mg Tablet PO 10 mg BEDTIME MYKEL Administration Furosemide 20 mg 06/02/20 08:30 Furosemide 20 Mg/2 Ml Vial IVPUSH Q12H MYKEL Protocol Levothyroxine Sodium 100 mcg 06/01/20 09:00 06/01/20 08:05 Levothyroxine Sodium 100 Mcg Tablet PO 100 mcg DAILY MYKEL Administration Metoprolol Tartrate 25 mg 06/01/20 11:00 06/02/20 05:27 Metoprolol Tartrate 25 Mg Tablet PO 25 mg Q6H MYKEL Administration Protocol Ondansetron HCl 4 mg 05/31/20 15:54 Ondansetron Hcl 4 Mg/2 Ml Vial IVPUSH Q8H PRN Nausea and Vomiting Sodium Chloride 3 ml 05/31/20 16:00 06/01/20 22:16 0.9 % Sodium Chloride Flush 3 Ml Syringe IVFLUSH 3 ml QSHIFT MYKEL Administration Labs CBC & Chem 7: 05/31/20 10:16 06/02/20 05:39 Assessment and Plan (1) Atrial flutter: Status: Acute (2) Pleural effusion on right: Status: Acute (3) Congestive heart failure: Status: Acute Assessment and Plan: CHF. Missed one week of Lasix, start IV lasix. Follow I&O, daily weights. Congestive heart failure due to lack of medicine as outpatient. Patient is doing better with good diuresis IV Lasix we continue IV Lasix 20 mg b.i.d. for 1 more day. Strict intake and output chart needs to be pursued. Follow-up BMP and BNP tomorrow. Possible that new onset atrial flutter could be the cause of his decompensation rather than under diuresis. See below for further management plan. (2) Atrial flutter: New onset atrial flutter with loss of AV synchrony and tachycardia. Possible that his congestive heart failure could be related to new onset atrial flutter with both tachycardias loss of AV synchrony. Will pursue rate control approach at this time. Increase metoprolol 25 mg q.6 and maximize to improve rate control below 100 beats per minute. He is already on Coumadin therapy. 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 Currently on full oral anticoagulation. Maintain target INR between 2.5 and 3.5. Echocardiogram done recently as outpatient showed normal LV systolic function moderate LVH and normal function bioprosthetic aortic valve, gradient across mitral valve was 6 mm Hg which is okay for mechanical valve. However is not reported as a mechanical valve. SBE prophylaxis as per ACC/aha guidelines. Right sided pleural effusion. Thoracentesis tommorrow, Hx of mechanical mitral valve, hold Warfarin tonight. Hypothyroidism. Levothyroxine. DVT prophylaxis with warfarin after thoracentesis.
[2020-06-02] MEDS: Aspirin 81 MG TAB.CHEW PO (08:53)
[2020-06-02] MEDS: Levothyroxine Sodium 100 MCG TABLET PO (08:53)
[2020-06-02] MEDS: 0.9 % Sodium Chloride Flush 3 ML SYRINGE IVFLUSH (08:53)
[2020-06-02] MEDS: Furosemide 20 MG/2 ML VIAL IVPUSH (08:54)
--- NOTE | 2020-06-02 10:18 | PM.PNCARD ---
Subjective Subjective Date of Service: 06/02/20 Principal diagnosis: CHF, atrial flutter Interval history: Patient is feeling a lot better. Heart rate is much better controlled today. Shortness of breath has improved. Overall has diuresed about 2400 mL. Review of Systems Constitutional: Reports no additional constitutional complaints Eyes: Reports no additional eye complaints Reports system reviewed and no additional complaints, except as documented Cardiovascular: Reports no additional cardiovascular complaints Respiratory: Reports no additional respiratory complaints Gastrointestinal: Reports no additional gastrointestinal complaints Genitourinary: Reports no additional male genitourinary complaints Reports system reviewed and no additional complaints, except as documented Hematologic/Lymphatic: Reports no additional hematologic/lymphatic complaints Physical Exam Vital Signs: Last Vital Signs Temp 98.7 F 06/02/20 07:32 Pulse 73 06/02/20 07:32 Resp 18 06/02/20 07:32 BP 114/61 06/02/20 07:32 Pulse Ox 97 06/02/20 07:32 Body Mass Index 26.3 Const General: cooperative, no acute distress, alert and awake Nutritional Appearance: overweight Orientation/consciousness: patient oriented x3 HENMT Head: Yes normocephalic and Yes atraumatic Resp Effort & Inspection: normal respiratory effort Auscultation: no crackles, no rales, no rhonchi and breath sounds absent on the right (Base) Cardio Jugular venous distension: no JVD Palpation: normal PMI Rhythm: abnormal rhythm irregularly irregular Heart sounds: Murmur heart sound present (Systolic murmur) and Other heart sounds present ([place] opening and closing click of [place] mitral valve) GI Auscultation: normal bowel sounds Skin General skin exam: no rashes or lesions noted and ecchymosis Neuro General: patient oriented x3 Extrem General: Yes no clubbing, cyanosis or edema and Yes venous stasis dermatitis Psych Appearance: grossly normal Results Labs and Meds Result diagrams: 05/31/20 10:16 06/02/20 05:39 Lab results: Laboratory Results - last 24 hr 06/02/20 05:39 Sodium 142 Potassium 4.1 Chloride 103 Carbon Dioxide 31 H Anion Gap 12 BUN 43 H Creatinine 1.32 Estim Creat Clear Calc 39.6 Estimated GFR 52 Random Glucose 101 Calcium 8.3 L Progress Note: A&P Assessment and plan (1) Atrial flutter: Status: Acute Assessment and Plan: New onset atrial flutter in elderly man probably responsible for his decompensation as well. Rate is very well controlled at this time on current metoprolol dose. Switch to 50 mg b.i.d. on discharge. Continue Coumadin therapy with goal INR between 2.5 and 3.5 as below. Outpatient decision for rhythm control versus rate control. Will require outpatient Holter monitor. Patient's findings were discussed with his own curbstone setter who is aware and will set up for outpatient follow-up (2) Congestive heart failure: Status: Acute Assessment and Plan: Congestive heart failure, decompensation for 2 reasons. Probably lack of his furosemide as well as new onset atrial flutter. Follow up as outpatient may consider rhythm control approach as outpatient. Continue current p.o. diuretics. Patient understands management of heart failure well. Daily weight monitoring and avoidance of salt loading was discussed. From cardiac perspective patient can be discharged home and follow up with his curbstone setter in 7-10 days. Fall Risk Details Current Medications: Current Medications Generic Name Dose Route Start Last Admin Trade Name Freq PRN Reason Stop Dose Admin Acetaminophen 650 mg 05/31/20 15:54 Acetaminophen 325 Mg Tablet PO Q6H PRN Pain, Mild (Pain Scale 1-3) Aspirin 81 mg 06/01/20 09:00 06/02/20 08:53 Aspirin 81 Mg Tab.Chew PO 81 mg DAILY MYKEL Administration Atorvastatin Calcium 10 mg 05/31/20 21:00 06/01/20 22:16 Atorvastatin Calcium 10 Mg Tablet PO 10 mg BEDTIME MYKEL Administration Furosemide 20 mg 06/02/20 08:30 06/02/20 08:54 Furosemide 20 Mg/2 Ml Vial IVPUSH 20 mg Q12H MYKEL Administration Protocol Levothyroxine Sodium 100 mcg 06/01/20 09:00 06/02/20 08:53 Levothyroxine Sodium 100 Mcg Tablet PO 100 mcg DAILY MYKEL Administration Metoprolol Tartrate 25 mg 06/01/20 11:00 06/02/20 05:27 Metoprolol Tartrate 25 Mg Tablet PO 25 mg Q6H MYKEL Administration Protocol Ondansetron HCl 4 mg 05/31/20 15:54 Ondansetron Hcl 4 Mg/2 Ml Vial IVPUSH Q8H PRN Nausea and Vomiting Sodium Chloride 3 ml 05/31/20 16:00 06/02/20 08:53 0.9 % Sodium Chloride Flush 3 Ml Syringe IVFLUSH 3 ml QSHIFT MYKEL Administration Time Spent With Patient Time: Total time spent is greater than 50% in coordination of care (as documented) at patient's floor/unit and/or counseling patient: Time with patient: 25 - 35 minutes
[2020-06-02 11:18] VITALS: BP 124/56; PULSE 83; RESP 18; TEMP 36
--- NOTE | 2020-06-02 11:51 | PM.DS ---
DS: Providers Provider Date of admission: 05/31/20 14:16 Primary care physician: Unknown Physician Consults: 06/01/20 08:21 Consult to Cardiology Routine Consulting Provider: Gabino Ba Reason for consultation: CHF Has provider been notified: No DS: Diagnosis Discharge Diagnosis (1) Atrial flutter: Status: Acute (2) Congestive heart failure: Status: Acute DS: Medications Discharge Medications Home Medications: Home Medications Medication Instructions Recorded Confirmed aspirin [Aspirin Low-Strength] 81 mg PO DAILY 05/31/20 05/31/20 atorvastatin [Lipitor] 10 mg PO BEDTIME 05/31/20 05/31/20 furosemide 40 mg PO DAILY 05/31/20 05/31/20 levothyroxine 100 mcg PO DAILY 05/31/20 05/31/20 metoprolol tartrate 12.5 mg PO BID 05/31/20 05/31/20 warfarin 7.5 mg PO DAILY 05/31/20 05/31/20 DS: Summary Hospital Course Hospital Course: 85 year old man presenting to the ED with worsening shortness of breath over the last several days. He reported that he ran out of his Lasix and apparently there was a delay in his mail order. He received it on Monday and took double dose on Monday and Monday and then took his regular dose today. He reported some increase in lower extremity edema more recently. He denied chest pain, nausea, vomiting. He has a history of recurrent pleural effusion. CXR showing effusion again. BNP was mildly elevated at 228. His creatinine was also mildly bumped at 1.30. He will be admitted for CHF and recurrent pleural effusion which mariann likely require thoracentesis. pMHX: Carpal tunnel syndrome CHF (congestive heart failure) GERD (gastroesophageal reflux disease) GI bleed HTN (hypertension) HUS (hemolytic uremic syndrome) Hyperlipidemia Hypothyroidism Stasis dermatitis Thoracoscopic surgical procedure converted to open procedure. HOSPITAL COURSE PROBLEM [place] section : CHF exacerbation probably acute on chronic diastolic CHF. In addition patient had AFib and also missed Lasix at might have contributed to above. Patient was started on IV Lasix and metoprolol for rate control adjusted dose [place]. Patient diuresed well, heart rate seems better. Patient is going home with metoprolol 50 mg p.o. b.i.d. as well as patient will continue Lasix p.o. daily also. CHF education given. Right sided pleural effusion-as as per the patient seems chronic, patient improved with diuresis and AFib control: Will defer thoracentesis since patient already improved with diuresis, Further management outpatient as per PCP and Cardiology. (2) Atrial flutter: New onset atrial flutter with loss of AV synchrony and tachycardia. Possible that his congestive heart failure could be related to new onset atrial flutter with both tachycardias loss of AV synchrony. Will pursue rate control approach at this time. Adjusted metoprolol to 50 mg p.o. b.i.d., INR is therapeutic. Monitor INR outpatient with PCP and further management as per PCP.. Goal INR 2.5-3.5 as per cardio. Patient is to follow-up with Dr. still outpatiently. 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 Currently on full oral anticoagulation. Maintain target INR between 2.5 and 3.5. Echocardiogram done recently as outpatient showed normal LV systolic function moderate LVH and normal function bioprosthetic aortic valve, gradient across mitral valve was 6 mm Hg which is okay for mechanical valve. However is not reported as a mechanical valve. Above management discussed with the patient in detail length he understand and in agreement with the above plan, time spent 50 minutes and 50% time spent on counseling. Significant findings: As above. Procedures performed: None. Treatment and response: As above. Complications: None. Time Spent with Patient Time attestation: Total time spent providing and/or coordinating discharge services: Physical Exam Vital Signs: Vital Signs: Last Vital Signs Temp 96.8 F 06/02/20 11:18 Pulse 83 06/02/20 11:18 Resp 18 06/02/20 11:18 BP 124/56 L 06/02/20 11:18 Pulse Ox 97 06/02/20 07:32 Body Mass Index 26.3 Physical exam: Constitutional: Patient is not in distress Eyes anicteric no discharge Cvs: rrr, [id number] , no murmur res: Fair air entry, slightly diminished at bases. abd: no rebound or guarding ,nt, bs present. ext pulses present , no cyanosis neuro: axo3 , nonfocal. DS: Data Data Completed and Pending Labs on day of discharge: 05/31/20 ECG 12 lead EKG Stat 05/31/20 09:48 EKG Documentation DIRECTED 05/31/20 09:58 XR chest 1V Stat 05/31/20 10:16 B Type Natriuretic Peptide Stat Basic Metabolic Panel Stat COVID-19 ID NOW ([place]) Stat Complete Blood Count Auto Diff Stat Liver Panel Stat Magnesium Stat Partial Thromboplastin Time Stat Prothrombin Time INR Stat Troponin-I High Sensitivity Stat 05/31/20 11:01 Furosemide [Lasix] 40 mg IVPUSH STAT STA Potassium Chloride ER [Klor-con] 40 meq PO ONCE ONE 05/31/20 12:26 Type and Screen Stat 05/31/20 14:16 Transfer Order Routine 05/31/20 Lunch Low Sodium Diet 05/31/20 18:00 Furosemide [Lasix] 20 mg IVPUSH BID@0900,1800 05/31/20 21:00 Metoprolol Tartrate [Lopressor] 12.5 mg PO BID 06/01/20 CT chest wo con Stat 06/01/20 04:19 Basic Metabolic Panel DAILY@0600 Lactate Dehydrogenase Routine Prothrombin Time INR DAILY@0600 06/01/20 08:18 Vital Signs Q4H 06/01/20 09:57 ECG 12 lead EKG Routine EKG Documentation DIRECTED 06/01/20 10:34 Furosemide [Lasix] 20 mg IVPUSH NOW STA 06/01/20 18:00 Furosemide [Lasix] 40 mg IVPUSH BID@0900,1800 06/02/20 05:39 Basic Metabolic Panel DAILY@0600 Laboratory Last Values WBC 7.1 X10*3/uL (4.8-10.8) 05/31/20 10:16 RBC 3.29 X10*6/uL (4.60-5.80) L 05/31/20 10:16 Hgb 10.6 g/dl (14.0-18.0) L 05/31/20 10:16 Hct 34.1 % (42-52) L 05/31/20 10:16 MCV 103.6 fL (80-98) H 05/31/20 10:16 MCH 32.2 pg (27.0-33.0) 05/31/20 10:16 MCHC 31.1 g/dl (31.0-36.0) 05/31/20 10:16 RDW 15.6 % (11.0-16.0) 05/31/20 10:16 Plt Count 171 X10*3/uL (160-400) 05/31/20 10:16 MPV 10.9 fL (9.4-12.4) 05/31/20 10:16 Immature Gran % (Auto) 0.3 % (0.0-0.4) 05/31/20 10:16 Neut % (Auto) 75.4 % (45-73) H 05/31/20 10:16 Lymph % (Auto) 9.9 % (20-40) L 05/31/20 10:16 [place] % (Auto) 11.9 % (2-11) H 05/31/20 10:16 Eos % (Auto) 2.2 % (0-4) 05/31/20 10:16 Baso % (Auto) 0.3 % (0-2) 05/31/20 10:16 Lymph # (Auto) 0.7 X10*3/uL (1.2-4.9) L 05/31/20 10:16 [place] # (Auto) 0.9 X10*3/uL (0.1-1.2) 05/31/20 10:16 Eos # (Auto) 0.2 X10*3/uL (0.0-0.4) 05/31/20 10:16 Baso # (Auto) 0.0 X10*3/uL (0.0-0.2) 05/31/20 10:16 Abs Immat Gran (auto) 0.02 X10*3/uL (0.00-0.03) 05/31/20 10:16 Absolute Neuts (auto) 5.4 X10*3/uL (2.0-8.3) 05/31/20 10:16 Absolute Nucleated RBC 0.000 X10*3/uL (0.0-0.012) 05/31/20 10:16 Nucleated RBC % (auto) 0.0 /100WBC (0.0-0.2) 05/31/20 10:16 PT 30.2 SEC (10.8-13.0) H 06/01/20 04:19 INR 2.5 (0.9-1.1) H 06/01/20 04:19 APTT 51.4 SEC (24.1-38.0) H 05/31/20 10:16 Sodium 142 mmol/L (135-145) 06/02/20 05:39 Potassium 4.1 mmol/l (3.3-5.1) 06/02/20 05:39 Chloride 103 mmol/L (96-108) 06/02/20 05:39 Carbon Dioxide 31 mmol/L (22-29) H 06/02/20 05:39 Anion Gap 12 (-) 06/02/20 05:39 BUN 43 mg/dL (9-16) H 06/02/20 05:39 Creatinine 1.32 mg/dL (0.5-1.4) 06/02/20 05:39 Estim Creat Clear Calc 39.6 06/02/20 05:39 Estimated GFR 52 06/02/20 05:39 Random Glucose 101 mg/dL (60-115) 06/02/20 05:39 Calcium 8.3 mg/dL (8.4-10.2) L 06/02/20 05:39 Magnesium 2.0 mg/dL (1.6-2.6) 05/31/20 10:16 Total Bilirubin 1.0 mg/dL (0.0-1.0) 05/31/20 10:16 Direct Bilirubin 0.5 mg/dL (0.0-0.5) 05/31/20 10:16 AST 47 U/L (5-37) H 05/31/20 10:16 ALT 26 U/L (0-40) 05/31/20 10:16 Alkaline Phosphatase 72 U/L (39-117) 05/31/20 10:16 Lactate Dehydrogenase 550 U/L (118-273) H 06/01/20 04:19 Troponin I High Sens 17.6 ng/L (<3.5-35.0) 05/31/20 10:16 B-Natriuretic Peptide 228 pg/mL (<100) H 05/31/20 10:16 Total Protein 7.3 g/dL (6.5-8.0) 05/31/20 10:16 Albumin 3.9 g/dL (3.5-5.0) 05/31/20 10:16 Urine Color YELLOW 05/31/20 10:16 Urine Appearance CLEAR 05/31/20 10:16 Urine pH 5.5 (5.0-8.0) 05/31/20 10:16 Ur Specific [place] 1.015 (1.005-1.025) 05/31/20 10:16 Urine Protein 1+ MG/DL (NEG-TRACE) H 05/31/20 10:16 Urine Glucose (UA) NEG MG/DL (NEG) 05/31/20 10:16 Urine Ketones NEG MG/DL (NEG) 05/31/20 10:16 Urine Blood 1+ (NEG) H 05/31/20 10:16 Urine Nitrite NEG (NEG) 05/31/20 10:16 Ur Leukocyte Esterase NEG (NEG) 05/31/20 10:16 Urine RBC 0-2 /HPF (0) 05/31/20 10:16 Urine WBC 0 /HPF (0-4) 05/31/20 10:16 Ur Squamous Epith Cells TRACE /LPF 05/31/20 10:16 Urine Bacteria NONE /LPF 05/31/20 10:16 COVID-19 (ANNA) Negative (Negative) 05/31/20 10:16 COVID-19 Clin Com See Note 05/31/20 10:16 Blood Type A Positive 05/31/20 12:26 Antibody Screen NEGATIVE 05/31/20 12:26 Discharge Plan Discharge Patient Disposition: Home, Self-Care Referrals: Quoc Still MD [Physician] - (FOLLOW-UP WITH DR. MALONEY IN 1 WEEK. ) Physician,Unknown [Primary Care Provider] - Discharge Medications: New metoprolol tartrate 50 mg tablet 50 mg PO BID Qty: 60 RF: 0 Continued atorvastatin [Lipitor] 10 mg tablet 10 mg PO BEDTIME RF: 0 furosemide 40 mg tablet 40 mg PO DAILY RF: 0 levothyroxine 100 mcg tablet 100 mcg PO DAILY RF: 0 warfarin 5 mg tablet 7.5 mg PO DAILY RF: 0 aspirin [Aspirin Low-Strength] 81 mg Tablet,Chewable 81 mg PO DAILY RF: 0 Discontinued metoprolol tartrate 25 mg tablet 12.5 mg PO BID RF: 0 Discharge Orders: Discharge Order (Routine); Ordered 06/02/20 Ordered By: Stefanie Daley Diet: advance to usual diet Activity on Discharge: As tolerated Other Ambulatory Orders: Basic Metabolic Panel Fasting (Routine) Timeframe: 1 Day Facility: [facility] - Location: Laboratory Ordered By: Stefanie Daley Prothrombin Time INR (Routine) Timeframe: 1 Week Facility: [facility] - Location: Laboratory Ordered By: Stefanie Daley Visit Report Forms: Patient Portal Discharge page Care Plan Goals: Patient came with shortness of breath-has found to have pleural effusion: Patient also had AFib-started on metoprolol and also was diuresed well: Patient shortness of breath improved, discussed with Cardiology will avoid thoracenteses as per the patient seems to be chronic. Further management [place] patient is to follow-up with out patiently with the his clinical laboratory technologist. Monitor bmp patient on lasix Follow-up INR outpatient with PCP. Health Concerns: As above. Plan of Treatment: As above.
--- NOTE | 2020-06-02 12:04 | MHC.CM.PN ---
pt dcd today home no sercveis
== END 2020-06-02 14:30 | disposition home or self-care (01) | DRG 292 ==
LOC: HO.ED 11:54 → HO.IMC 14:56
PROVIDERS: Nurse Practitioner Acute Care; Physician Assistant; Admitting Provider Internal Medicine; Emergency Provider Emergency Medicine; Visit Provider Internal Medicine
DX: I11.0 Hypertensive heart disease with heart failure (principal); I48.92 Unspecified atrial flutter; I50.33 Acute on chronic diastolic (congestive) heart failure; I50.23 Acute on chronic systolic (congestive) heart failure; E03.9 Hypothyroidism, unspecified; E78.5 Hyperlipidemia, unspecified; T50.1X6A Underdosing of loop [high-ceiling] diuretics, initial encounter; Z91.138 Patient's unintentional underdosing of medication regimen for other reason; Y92.009 Unspecified place in unspecified non-institutional (private) residence as the place of occurrence of the external cause; Z20.828 Contact with and (suspected) exposure to other viral communicable diseases; Z95.2 Presence of prosthetic heart valve; Z88.5 Allergy status to narcotic agent; Z79.01 Long term (current) use of anticoagulants; Z79.82 Long term (current) use of aspirin; Z79.890 Hormone replacement therapy; Z79.899 Other long term (current) drug therapy
CPT/HCPCS: 36415; 71045; 71250; 80048; 80076; 81001; 83615; 83735; 83880; 84484; 85025; 85610; 85730; 86850; 86900; 86901; 87635; 93005; 99285; J1940

== ENCOUNTER 2020-06-04 13:51 | Outpatient (REF) | payer MEDICARE, SELFPAY | END 2020-06-04 13:52 | disposition home or self-care (01) | LOC: HO.LAB 13:51 | PROVIDERS: Visit Provider Internal Medicine | DX: Z20.828 Contact with and (suspected) exposure to other viral communicable diseases (principal) | CPT/HCPCS: C9803; U0003 ==

== ENCOUNTER 2020-06-19 12:47 | Emergency (ER) | payer MEDICARE, SELFPAY ==
[2020-06-19 13:12] VITALS: BP 102/65; PULSE 87; RESP 20; TEMP 37.1; O2SAT 93; BMI 27.4
[2020-06-19 15:52] VITALS: BP 127/69; PULSE 106; RESP 22; O2SAT 91
== END 2020-06-19 17:56 | disposition left against medical advice (07) ==
LOC: HO.ED 17:53
PROVIDERS: Emergency Provider Emergency Medicine; PCP Hospitalist
DX: R06.02 Shortness of breath (principal)
CPT/HCPCS: 99281; 99283

== ENCOUNTER 2020-06-25 18:34 | Emergency (ER) | payer MEDICARE, SELFPAY ==
[2020-06-25 18:45] VITALS: BP 117/63; PULSE 73; RESP 18; TEMP 36.8; O2SAT 97; BMI 26.9
--- NOTE | 2020-06-25 18:54 | ECG_ITS ---
Test Reason : SOB Blood Pressure : / mmHG Vent. 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
--- NOTE | 2020-06-25 18:54 | XR_ITS ---
EXAMINATION: XR CHEST CLINICAL INFORMATION: Shortness of breath COMPARISON: Chest radiograph 05/31/[address] 06/01/2020 TECHNIQUE: Frontal view of the chest was obtained. FINDINGS: Patient status post median sternotomy. Mild cardiomegaly is present with a mitral valve prosthesis. Aortic valve prosthesis seen on prior CT scan, difficult to appreciate on chest radiograph. No Gross CHF is seen. Chronic pleural changes are present again on the right with associated atelectasis or scarring - some fluid on the right may have increased in size slightly since the prior study. XR/XR chest 1V IMPRESSION: Cardiomegaly without gross CHF. Chronic pleural changes in the right hemithorax as described above.
--- NOTE | 2020-06-25 19:16 | ED.SOB ---
HPI - SOB/Dyspnea General Chief Complaint: Dyspnea Stated Complaint: dyspnea Time Seen by Provider: 06/25/20 18:46 Source: patient and EMS Mode of arrival: EMS Limitations: no limitations History of Present Illness HPI Narrative: 85 y/o male with history of CHF, atrial flutter, hx bioprosthetic AV replacement with redo sternotomy and mechnical MV replacement on Coumadin, HTN, atypical HUS, hypothyroidism, GERD, hx GI bleed, hx chronic right sided pleural effusion (hx PleurEx catheter in the past) who presents with worsening ZEPEDA for the last 10 days. He reports compliance with all of his medications including his lasix and coumadin. He also reports a new dry cough. He had direct COVID exposure about 10 days ago. He denies fever, chills, chest pain, abdominal pain, nausea or vomiting. He reports compliance with a low salt diet as of late but admits to a 3.5 pound weight gain over the last week or so. MD elicited complaint: shortness of breath Pertinent past history: congestive heart failure Onset (ago): week(s) (1.5 -2) Context: occurred during exertion Timing: intermittent Severity: moderate Exacerbating factors: lying flat, exertion, coughing and talking Relieving factors: rest and upright position Known history of: congestive heart failure Associated symptoms: cough, orthopnea and lower extremity pain Treatment prior to arrival: none Related Data Home oxygen amount: none Home Medications Medication Instructions Recorded Confirmed aspirin 81 mg PO DAILY 05/31/20 05/31/20 atorvastatin [Lipitor] 10 mg PO BEDTIME 05/31/20 05/31/20 levothyroxine 100 mcg PO DAILY 05/31/20 05/31/20 warfarin 7.5 mg PO DAILY 05/31/20 05/31/20 Previous Rx's Medication Instructions Recorded furosemide 40 mg PO DAILY #30 tab 06/02/20 metoprolol tartrate 50 mg PO BID #60 tab 06/02/20 furosemide [Lasix] 60 mg PO QAM #10 tab 06/25/20 Allergies Allergy/AdvReac Type Severity Reaction Status Date / Time Opioids - Morphine Analogues Allergy Unknown VOMITING Verified 05/31/20 09:57 [OPIOIDS - MORPHINE ANALOGUES] morphine [MORPHINE] AdvReac Unknown VOMITING Verified 05/31/20 09:57 Review of Systems Review of Systems: Constitutional: No Fever, No Chills ENT/Mouth: No sore throat, No Rhinorrhea, No Swallowing Difficulty Eyes: No Eye Pain, No Swelling, No Redness Cardiovascular: No Chest Pain, + SOB, + Orthopnea, + Edema Respiratory: + Cough, No Sputum, No Wheezing, + dyspnea Gastrointestinal: No Nausea, No Vomiting, No Diarrhea, No abdominal Pain Genitourinary: No Dysuria, No Urinary Frequency, No Hematuria Musculoskeletal: No joint pain, No Myalgias Skin: No Skin Lesions, No rash Neuro: + Weakness, No Numbness, No Dizziness, No Headache Psych: No Anxiety/Panic, No Depression Heme/Lymph: No Bruising, No Lymphadenopathy Endocrine: No Polyuria, No Polydipsia [facility] Past Medical History Attestation statement: The following information was validated with the patient. Medical History Atrial flutter Carpal tunnel syndrome CHF (congestive heart failure) GERD (gastroesophageal reflux disease) GI bleed HTN (hypertension) HUS (hemolytic uremic syndrome) Hyperlipidemia Hypothyroidism Stasis dermatitis Thoracoscopic surgical procedure converted to open procedure Surgical History H/O mitral valve replacement with mechanical valve History of aortic valve replacement with bioprosthetic valve History of bronchoscopy Status post double vessel coronary artery bypass Social History Social History (Updated 05/31/20 @ 13:42 by Sara Kay NP) Household Members: Spouse and Family Housing: House Alcohol intake: never Smoking Status: Never smoker Use of substances other than those prescribed or required for medical reasons: No Advance Directives: Yes Advance Directives on File: Yes Advance Directives Date on File: 05/31/20 service: No Physical Exam Vital Signs: Vital Signs: Last Vital Signs Temp 98.1 F 06/25/20 20:00 Pulse 70 06/25/20 20:00 Resp 20 06/25/20 20:00 BP 144/71 H 06/25/20 20:00 Pulse Ox 95 06/25/20 20:00 Body Mass Index 26.9 Appearance: Alert. Oriented X3. No acute distress. Eyes: Pupils equal, round and reactive to light. ENT: Pharynx normal. Neck: Normal inspection. Neck supple. CVS: irregularly irregular, normal rate. +murmur Respiratory: Diminished RLL, dyspneic when speaking. No rales or wheezing. Abdomen: Soft and nontender. +BS x4 Skin: Skin warm and dry. Normal skin color. Normal skin turgor. No rashes. Extremities: 1+ LE edema with chronic venous stasis changes bilaterally Neuro: Oriented X 3. No motor deficit. No sensory deficit. Course Course Course Narrative: 85 y/o male presenting with ZEPEDA and holding onto water with LE edema despite diruetic compliance. Not hypoxic but markedly dyspneic with any exertion per report. No chest pain. Concern for recurrent CHF exacerbation. he was admitted here 05/31-06/02/2020, was treated with IV diuretics & seen by Cardiology. Will get CXR, BNP, Resp viral panel. Anticipate admission. Reevaluation(s) Reevaluation #1: CXR with chronic findings, no overt CHF. He remains 95% on room air. He was ambulated around the department with brief dip in O2 to 91%, mild dyspnea after 2-3 minutes with ending O2 sat 97%. Lab workup is still pending. May be able to discharge with increased dose of lasix and avoid admission. Reevaluation #2: Repeat coags ordered as well as IV lasix. Case was discussed with Dr. Cabral - agreed to plan for discharge home with increased lasix dose and follow up with PCP Monday. He has good outpatient follow up and was instructed on warning symptoms/signs to prompt immediate return to the ER. Signed out to Kaelyn NANNY/HOUSEHOLD MANAGER who will assume care. MDM - SOB/Dyspnea Lab Data Attestation: I reviewed the patient's lab results. Result diagrams: 06/25/20 19:43 06/25/20 19:44 Labs: Lab Results 06/25/20 06/25/20 06/25/20 Range/Units 19:43 19:43 19:43 WBC 5.5 (4.8-10.8) X10*3/uL RBC 3.22 L (4.60-5.80) X10*6/uL Hgb 10.1 L (14.0-18.0) g/dl Hct 32.3 L (42-52) % MCV 100.3 H (80-98) fL MCH 31.4 (27.0-33.0) pg MCHC 31.3 (31.0-36.0) g/dl RDW 14.9 (11.0-16.0) % Plt Count 250 D (160-400) X10*3/uL MPV 11.2 (9.4-12.4) fL Immature Gran % (Auto) 0.4 (0.0-0.4) % Neut % (Auto) 65.8 (45-73) % Lymph % (Auto) 15.4 L (20-40) % [place] % (Auto) 14.7 H (2-11) % Eos % (Auto) 3.3 (0-4) % Baso % (Auto) 0.4 (0-2) % Lymph # (Auto) 0.8 L (1.2-4.9) X10*3/uL [place] # (Auto) 0.8 (0.1-1.2) X10*3/uL Eos # (Auto) 0.2 (0.0-0.4) X10*3/uL Baso # (Auto) 0.0 (0.0-0.2) X10*3/uL Abs Immat Gran (auto) 0.02 (0.00-0.03) X10*3/uL Absolute Neuts (auto) 3.6 (2.0-8.3) X10*3/uL Absolute Nucleated RBC 0.000 (0.0-0.012) X10*3/uL Nucleated RBC % (auto) 0.0 (0.0-0.2) /100WBC PT Cancelled INR Cancelled APTT Cancelled Sodium (135-145) mmol/L Potassium (3.3-5.1) mmol/l Chloride (96-108) mmol/L Carbon Dioxide (22-29) mmol/L Anion Gap (12-20) BUN (9-16) mg/dL Creatinine (0.5-1.4) mg/dL Estim Creat Clear Calc Estimated GFR Random Glucose (60-115) mg/dL Calcium (8.4-10.2) mg/dL Magnesium (1.6-2.6) mg/dL Total Bilirubin (0.0-1.0) mg/dL Direct Bilirubin (0.0-0.5) mg/dL AST (5-37) U/L ALT (0-40) U/L Alkaline Phosphatase (39-117) U/L Troponin I High Sens 15.7 (<3.5-35.0) ng/L B-Natriuretic Peptide 527 H (<100) pg/mL Total Protein (6.5-8.0) g/dL Albumin (3.5-5.0) g/dL Procalcitonin ng/mL Urine Color Urine Appearance Urine pH (5.0-8.0) Ur Specific [place] (1.005-1.025) Urine Protein (NEG-TRACE) MG/DL Urine Glucose (UA) (NEG) MG/DL Urine Ketones (NEG) MG/DL Urine Blood (NEG) Urine Nitrite (NEG) Ur Leukocyte Esterase (NEG) Urine RBC (0) /HPF Urine WBC (0-4) /HPF Ur Squamous Epith Cells /LPF Urine Bacteria /LPF Coronavirus (PCR) (Negative) Influenza Type A (PCR) (Negative) Influenza Type B (PCR) (Negative) RSV RNA Qual (PCR) (Negative) 06/25/20 06/25/20 06/25/20 Range/Units 19:43 19:43 19:44 WBC (4.8-10.8) X10*3/uL RBC (4.60-5.80) X10*6/uL Hgb (14.0-18.0) g/dl Hct (42-52) % MCV (80-98) fL MCH (27.0-33.0) pg MCHC (31.0-36.0) g/dl RDW (11.0-16.0) % Plt Count (160-400) X10*3/uL MPV (9.4-12.4) fL Immature Gran % (Auto) (0.0-0.4) % Neut % (Auto) (45-73) % Lymph % (Auto) (20-40) % [place] % (Auto) (2-11) % Eos % (Auto) (0-4) % Baso % (Auto) (0-2) % Lymph # (Auto) (1.2-4.9) X10*3/uL [place] # (Auto) (0.1-1.2) X10*3/uL Eos # (Auto) (0.0-0.4) X10*3/uL Baso # (Auto) (0.0-0.2) X10*3/uL Abs Immat Gran (auto) (0.00-0.03) X10*3/uL Absolute Neuts (auto) (2.0-8.3) X10*3/uL Absolute Nucleated RBC (0.0-0.012) X10*3/uL Nucleated RBC % (auto) (0.0-0.2) /100WBC PT INR APTT Sodium 143 (135-145) mmol/L Potassium 4.4 (3.3-5.1) mmol/l Chloride 107 (96-108) mmol/L Carbon Dioxide 28 (22-29) mmol/L Anion Gap 12 (12-20) BUN 35 H (9-16) mg/dL Creatinine 1.35 (0.5-1.4) mg/dL Estim Creat Clear Calc 38.7 Estimated GFR 50 Random Glucose 103 (60-115) mg/dL Calcium 7.8 L D (8.4-10.2) mg/dL Magnesium 2.1 (1.6-2.6) mg/dL Total Bilirubin 0.6 (0.0-1.0) mg/dL Direct Bilirubin 0.3 (0.0-0.5) mg/dL AST 70 H (5-37) U/L ALT 44 H (0-40) U/L Alkaline Phosphatase 101 D (39-117) U/L Troponin I High Sens (<3.5-35.0) ng/L B-Natriuretic Peptide (<100) pg/mL Total Protein 7.0 (6.5-8.0) g/dL Albumin 3.4 L (3.5-5.0) g/dL Procalcitonin 0.08 ng/mL Urine Color Urine Appearance Urine pH (5.0-8.0) Ur Specific [place] (1.005-1.025) Urine Protein (NEG-TRACE) MG/DL Urine Glucose (UA) (NEG) MG/DL Urine Ketones (NEG) MG/DL Urine Blood (NEG) Urine Nitrite (NEG) Ur Leukocyte Esterase (NEG) Urine RBC (0) /HPF Urine WBC (0-4) /HPF Ur Squamous Epith Cells /LPF Urine Bacteria /LPF Coronavirus (PCR) POSITIVE A (Negative) Influenza Type A (PCR) NEGATIVE (Negative) Influenza Type B (PCR) NEGATIVE (Negative) RSV RNA Qual (PCR) NEGATIVE (Negative) 06/25/20 Range/Units 20:07 WBC (4.8-10.8) X10*3/uL RBC (4.60-5.80) X10*6/uL Hgb (14.0-18.0) g/dl Hct (42-52) % MCV (80-98) fL MCH (27.0-33.0) pg MCHC (31.0-36.0) g/dl RDW (11.0-16.0) % Plt Count (160-400) X10*3/uL MPV (9.4-12.4) fL Immature Gran % (Auto) (0.0-0.4) % Neut % (Auto) (45-73) % Lymph % (Auto) (20-40) % [place] % (Auto) (2-11) % Eos % (Auto) (0-4) % Baso % (Auto) (0-2) % Lymph # (Auto) (1.2-4.9) X10*3/uL [place] # (Auto) (0.1-1.2) X10*3/uL Eos # (Auto) (0.0-0.4) X10*3/uL Baso # (Auto) (0.0-0.2) X10*3/uL Abs Immat Gran (auto) (0.00-0.03) X10*3/uL Absolute Neuts (auto) (2.0-8.3) X10*3/uL Absolute Nucleated RBC (0.0-0.012) X10*3/uL Nucleated RBC % (auto) (0.0-0.2) /100WBC PT INR APTT Sodium (135-145) mmol/L Potassium (3.3-5.1) mmol/l Chloride (96-108) mmol/L Carbon Dioxide (22-29) mmol/L Anion Gap (12-20) BUN (9-16) mg/dL Creatinine (0.5-1.4) mg/dL Estim Creat Clear Calc Estimated GFR Random Glucose (60-115) mg/dL Calcium (8.4-10.2) mg/dL Magnesium (1.6-2.6) mg/dL Total Bilirubin (0.0-1.0) mg/dL Direct Bilirubin (0.0-0.5) mg/dL AST (5-37) U/L ALT (0-40) U/L Alkaline Phosphatase (39-117) U/L Troponin I High Sens (<3.5-35.0) ng/L B-Natriuretic Peptide (<100) pg/mL Total Protein (6.5-8.0) g/dL Albumin (3.5-5.0) g/dL Procalcitonin ng/mL Urine Color YELLOW Urine Appearance CLEAR Urine pH 6.0 (5.0-8.0) Ur Specific [place] 1.020 (1.005-1.025) Urine Protein 1+ H (NEG-TRACE) MG/DL Urine Glucose (UA) NEG (NEG) MG/DL Urine Ketones NEG (NEG) MG/DL Urine Blood TRACE (NEG) Urine Nitrite NEG (NEG) Ur Leukocyte Esterase NEG (NEG) Urine RBC 1-4 (0) /HPF Urine WBC 0 (0-4) /HPF Ur Squamous Epith Cells TRACE /LPF Urine Bacteria NONE /LPF Coronavirus (PCR) (Negative) Influenza Type A (PCR) (Negative) Influenza Type B (PCR) (Negative) RSV RNA Qual (PCR) (Negative) ECG Data Attestation: I personally reviewed and interpreted this ECG as follows: ECG interpretation date: 06/25/20 ECG interpretation time: 19:10 Interpretation: atrial flutter, HR 77 bpm, prolonged QTc 477 ms, no ST segment elevations, Critical Care Time Critical Care Time Critical Care Time: No Discharge Plan Discharge Clinical Impression: Congestive heart failure Patient Disposition: Home, Self-Care Instructions: Heart Failure (ED), Leg Edema (ED), Low-Sodium Diet (ED) Additional Instructions: Your chest x-ray today did not show any acute findings. Your oxygen level remained normal, even while you walked around the ER. Plan to start taking an increased dose of lasix starting tomorrow morning - 60 mg daily. Follow up with your doctor Monday - call tomorrow to arrange this appointment and repeat blood work. If you develop worsening shortness of breath or difficulty breathing come back to the ER for further evaluation. Prescriptions: New furosemide [Lasix] 40 mg tablet 60 mg PO QAM Qty: 10 RF: 0 No Action atorvastatin [Lipitor] 10 mg tablet 10 mg PO BEDTIME RF: 0 levothyroxine 100 mcg tablet 100 mcg PO DAILY RF: 0 warfarin 5 mg tablet 7.5 mg PO DAILY RF: 0 aspirin 81 mg Tablet,Chewable 81 mg PO DAILY RF: 0 metoprolol tartrate 50 mg tablet 50 mg PO BID Qty: 60 RF: 0 furosemide 40 mg tablet 40 mg PO DAILY Qty: 30 RF: 0
[2020-06-25 19:30] VITALS: BP 125/63; PULSE 65; RESP 20; TEMP 36.7; O2SAT 95
[2020-06-25 20:00] VITALS: BP 144/71; PULSE 70; RESP 20; TEMP 36.7; O2SAT 95
[2020-06-25 20:01] LABS: MANUAL DIFF FLAG NO
[2020-06-25 20:05] LABS: Basophils Percent Auto 0.4 % (0-2); Eosinophils Absolute Auto 0.2 X10*3/uL (0.0-0.4); Eosinophils Percent Auto 3.3 % (0-4); Hematocrit 32.3 % (42-52); Hemoglobin 10.1 g/dl (14.0-18.0); Imm Gran Abs Auto 0.02 X10*3/uL (0.00-0.03); Imm Gran Pct Auto 0.4 % (0.0-0.4); Lymphocytes Absolute Auto 0.8 X10*3/uL (1.2-4.9); Lymphocytes Percent Auto 15.4 % (20-40); Mean Corpuscular HGB Conc 31.3 g/dl (31.0-36.0); Mean Corpuscular Hemoglobin 31.4 pg (27.0-33.0); Mean Corpuscular Volume 100.3 fL (80-98); Mean Platelet Volume 11.2 fL (9.4-12.4); Monocytes Absolute Auto 0.8 X10*3/uL (0.1-1.2); Monocytes Percent Auto 14.7 % (2-11); Neutrophils Absolute Auto 3.6 X10*3/uL (2.0-8.3); Neutrophils Percent Auto 65.8 % (45-73); Platelet Count 250 X10*3/uL (160-400); Red Blood Count 3.22 X10*6/uL (4.60-5.80); Red Cell Distribution Width 14.9 % (11.0-16.0); White Blood Count 5.5 X10*3/uL (4.8-10.8)
[2020-06-25 20:15] LABS: Glucose Urine UA NEG (NEG); Leukocyte Esterase Urine NEG (NEG); Nitrite Urine NEG (NEG); Urine Blood TRACE (NEG); Urine Ketones NEG (NEG); Urine Protein 1+ MG/DL (NEG-TRACE)
[2020-06-25 20:20] LABS: Appearance Urine CLEAR; Color Urine YELLOW
--- NOTE | 2020-06-25 20:20 | PC.NURSE ---
pt ambulated once around the ed. sat on room air started off at 95%. pt sat on first start droped to 91 and back up to 95% very quickly, pt was talking on the 2nd half of the walk with sat remaining at 95%. on the last stretch pt sat picked up to 97% but pt stated he felt the sob at the very ed of his walk. pt states he feels well to go home. pt in good spirits. provider made aware.
[2020-06-25 20:27] LABS: Alanine Aminotransferase 44 U/L (0-40); Albumin Level 3.4 g/dL (3.5-5.0); Alkaline Phosphatase 101 U/L (39-117); Anion Gap 12 (12-20); Aspartate Amino Transferase 70 U/L (5-37); Bilirubin Direct 0.3 mg/dL (0.0-0.5); Bilirubin Total 0.6 mg/dL (0.0-1.0); Blood Urea Nitrogen 35 mg/dL (9-16); Calcium 7.8 mg/dL (8.4-10.2); Carbon Dioxide 28 mmol/L (22-29); Chloride 107 mmol/L (96-108); Creatinine Clr Calc Pharmacy 38.7; Estimated Glomerular Filt Rate 50; Glucose Random 103 mg/dL (60-115); Magnesium 2.1 mg/dL (1.6-2.6); Potassium 4.4 mmol/l (3.3-5.1); Sodium 143 mmol/L (135-145)
[2020-06-25 20:29] LABS: B Type Natriuretic Peptide 527 pg/mL (<100); Troponin-I High Sensitivity 15.7 ng/L (<3.5-35.0)
[2020-06-25 20:34] LABS: Influenza A PCR NEGATIVE (Negative); Influenza B PCR NEGATIVE (Negative); Resp Syncy Virus RNA Qual PCR NEGATIVE (Negative); SARS COV2 PCR INHOUSE POSITIVE (Negative)
[2020-06-25 20:43] LABS: Procalcitonin 0.08 ng/mL
[2020-06-25 20:45] LABS: Squamous Epithelial Cell Urine TRACE /LPF; WBC Urine 0 /HPF (0-4)
[2020-06-25 21:51] VITALS: BP 140/83; PULSE 62; RESP 22; O2SAT 95
[2020-06-25] MEDS: Furosemide 40 MG/4 ML VIAL IVPUSH (21:52)
[2020-06-25 21:55] LABS: INTERNATIONAL NORM RATIO 4.8 (0.9-1.1); Prothrombin Time 58.5 SEC (10.8-13.0)
== END 2020-06-26 00:49 | disposition home or self-care (01) ==
PROVIDERS: Physician Assistant; Emergency Provider Internal Medicine
DX: I50.9 Heart failure, unspecified (principal); R06.00 Dyspnea, unspecified; R60.0 Localized edema; I10 Essential (primary) hypertension; Z20.822 Contact with and (suspected) exposure to COVID-19; Z79.899 Other long term (current) drug therapy; Z79.01 Long term (current) use of anticoagulants
CPT/HCPCS: 0241U; 36415; 71045; 80048; 80076; 81001; 83735; 83880; 84145; 84484; 85025; 85610; 85730; 93005; 96374; 99284; J1940